=== PATIENT | male | born 1990 | race Caucasian/White ===

== ENCOUNTER 2018-05-04 13:57 | Emergency (ER) | payer OTHER ==
[2018-05-04 15:32] VITALS: BP 140/90
--- NOTE | 2018-05-04 15:38 | ED ---
Abdominal Pain/Male - HPI Summary HPI Summary: 27-year-old male with history of gastritis presents with one-day history of same. He states that he was drinking in moderation through the weekend and this may have exacerbated it. He previously was given Carafate and other medications which helped this in the past. His discomfort is in the epigastric region and gets worse when laying down. He feels as though some foods exacerbated. This weekend, Pashto food may have done so. He denies any vomiting or diarrhea but has had some nausea. He denies any heartburn symptoms or sore throat. - History of Current Complaint Chief Complaint: UCAbdominalPain Stated Complaint: STOMACH COMPLAINT Time Seen by Provider: 05/04/18 15:23 Hx Obtained From: Patient Onset/Duration: Sudden Onset Pain Intensity: 3 - Allergies/Home Medications Allergies/Adverse Reactions: Allergies Allergy/AdvReac Type Severity Reaction Status Date / Time No Known Allergies Allergy Verified 05/04/18 15:32 PMH/Surg Hx/FS Hx/Imm Hx Previously Healthy: Yes - Carafate in the past Infectious Disease History: No Infectious Disease History: Denies: Traveled Outside the [place] in Last 30 Days - Social History Alcohol Use: Rare Substance Use Type: Reports: None Smoking Status (MU): Heavy Every Day Tobacco Smoker Type: Cigarettes Amount Used/How Often: 1/2 pack daily Have You Smoked in the Last Year: Yes Review of Systems Negative: Fever, Chills Negative: Sore Throat Negative: Shortness Of Breath, Cough Positive: Abdominal Pain, Nausea, Other - denies hematochezia or melena. Negative: Vomiting, Diarrhea Genitourinary: Negative Negative: Rash All Other Systems Reviewed And Are Negative: Yes Physical Exam - Summary Physical Exam Summary: Temperature 100.5 Triage Information Reviewed: Yes Vital Signs On Initial Exam: Initial Vitals Temp Pulse Resp BP Pulse Ox 100.5 F 72 16 140/90 99 05/04/18 15:24 05/04/18 15:24 05/04/18 15:24 05/04/18 15:24 05/04/18 15:24 Vital Signs Reviewed: Yes Appearance: Positive: Well-Appearing, No Pain Distress Skin: Positive: Warm, Dry Head/Face: Positive: Normal Head/Face Inspection Eyes: Positive: Normal, EOMI ENT: Positive: Normal ENT inspection. Negative: Tonsillar swelling, Tonsillar exudate Neck: Positive: Supple Respiratory/Lung Sounds: Positive: Clear to Auscultation Cardiovascular: Positive: RRR Abdomen Description: Positive: Nontender, No Organomegaly, Soft. Negative: Distended, Guarding, McBurney's Point Tenderness Bowel Sounds: Positive: Hyperactive Musculoskeletal: Positive: Normal, Strength/ROM Intact Neurological: Positive: Normal, Sensory/Motor Intact, Alert, Oriented to Person Place, Time AVPU Assessment: Alert Diagnostics - Vital Signs Vital Signs Temp Pulse Resp BP Pulse Ox 05/04/18 15:24 100.5 F 72 16 140/90 99 - Laboratory Lab Statement: Any lab studies that have been ordered have been reviewed, and results considered in the medical decision making process. Abdominal Pain Fem Course/Dx - Course Course Of Treatment: Discussed the patient's low-grade temperature with him. He has no pain in the right lower quadrant specifically and no pain on exam at all. There are increased bowel sounds and epigastric discomfort with laying flat. He is in no distress. He will avoid alcohol, NSAIDs. Other than modest use of alcohol this weekend there is no other significant risk factors for pancreatitis. - Diagnoses Differential Diagnosis/HQI/PQRI: Gall Bladder Disease, Pancreatitis, Peptic Ulcer Disease, Other - Gastritis Provider Diagnoses: Epigastric abdominal pain, Acute gastritis Discharge - Sign-Out/Discharge Documenting (check all that apply): Patient Departure - Discharge Plan Condition: Improved Disposition: HOME Prescriptions: Famotidine TAB* [Pepcid 20 MG TAB*] 20 mg PO BID #10 tab Pantoprazole TAB (NF) [Protonix TAB (NF)] 40 mg PO DAILY #30 tab Sucralfate TAB* [Carafate*] 1 gm PO ACHS #40 tab Patient Education Materials: Gastritis (ED) Forms: *Work Release Referrals: [facility] [place] [facility] [place] [facility] [Outside] Additional Instructions: Call for an appointment with a primary care provider. Avoid alcohol, anti- inflammatory medications and spicy or acidic foods. Return if worse, new symptoms or other concerns as discussed. - Billing Disposition and Condition Condition: IMPROVED Disposition: Home
== END 2018-05-04 15:35 | disposition home or self-care (01) ==
LOC: UCCORT 13:57
DX: K29.00 Acute gastritis without bleeding (principal); R10.13 Epigastric pain; F17.210 Nicotine dependence, cigarettes, uncomplicated
CPT/HCPCS: 99202; G0463

== ENCOUNTER 2018-10-02 15:47 | Emergency (ER) | payer OTHER ==
--- NOTE | 2018-10-05 21:48 | UC ---
Course/Dx - Diagnoses Provider Diagnoses: Patient left without being seen Discharge - Sign-Out/Discharge Documenting (check all that apply): Post-Discharge Follow Up All imaging exams completed and their final reports reviewed: No Studies - Discharge Plan Disposition: LEFT WITHOUT BEING SEEN Referrals: No Primary Care Phys,NOPCP [Primary Care Provider] - - Billing Disposition and Condition Disposition: Left Without Being Seen
== END 2018-10-02 16:59 | disposition left against medical advice (07) ==
LOC: UCCORT 15:47
DX: R50.9 Fever, unspecified (principal); Z53.21 Procedure and treatment not carried out due to patient leaving prior to being seen by health care provider